=== PATIENT | male | born 1975 | race Caucasian/White ===

== ENCOUNTER 2016-04-20 20:38 | Inpatient (IN) | payer OTHER ==
[~2016-04-20] VITALS: Ht 160 cm; Wt 89.5 kg
[~2016-04-20 20:38] MED LIST: ABILIFY DISCMEL10 MG PO; ADVAIR DISKU 11 UNIT INH; ALBUTEROL 3 ML3 ML INH; ALBUTEROL0.09 MG/A2 INH; ATROVENT 0.02%2.5 ML INH; AUGMENTIN 875875 MG PO; BUPROPION HCL150 MG PO; CATAPRES 0.1MG0.1 MG PO; CATAPRES0.1 MG PO; CLONIDINE0.1 MG PO; LATUDA40 MG; LITHIUM CARBON300 M3 PO; LYRICA100 MG PO; LYRICA75 MG PO; METHYLPHENIDATE10 M2 PO; PREDNISONE 20MG20 MG PO; PREDNISONE10 MG PO; PROAIR HFA0.09 MG/Ac INH; PROBIOTIC & ACI1 CAP PO; PROVENTIL0.09 MG/Ac INH; SUBOXONE 8 MG-21 FIL SL; SYMBICORT 160/41 PUF INH; VENTOLIN H0.09 MG/Ac INH; WELLBUTRIN XL300 MG PO
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
--- NOTE | 2016-04-20 20:56 | NUR ---
TO ROOM 13. SECURITY NOTIFIED
--- NOTE | 2016-04-20 21:33 | NUR ---
BLOOD WORK DRAWN AND SENT TO LAB BY TORITO ORTIZ
[2016-04-20 21:38] LABS: ABSOLUTE BASOPHIL COUNT 0 /CUMM (0.0-0.2); ABSOLUTE EOSINOPHIL COUNT 0.4 /CUMM (0.0-0.7); ABSOLUTE GRANULOCYTE CT 1.9 /CUMM (1.4-6.5); ABSOLUTE LYMPH COUNT 2.8 /CUMM (1.2-3.4); ABSOLUTE MONOCYTE COUNT 0.5 /CUMM (0.10-0.60); BASOPHIL % 0.6 % (0.0-2.0); EOSINOPHIL % 7.6 % (0-5); GRANULOCYTE % 33.6 % (42.2-75.2); HEMATOCRIT 40.1 % (42-52); MEAN CORPUSCULAR HGB 30.4 PG (27.0-31.0); MEAN CORPUSCULAR HGB CONC 33.3 G/DL (33.0-37.0); MEAN CORPUSCULAR VOLUME 91.5 FL (80.0-94.0); MEAN PLATELET VOLUME 7.1 FL (7.4-10.4); PLATELET COUNT 268 /CUMM (130-400); RBC DISTRIBUTION WIDTH 13.4 % (11.5-14.5); RED BLOOD CELL CT 4.39 /CUMM (4.70-6.10); WHITE BLOOD CELL COUNT 5.7 /CUMM (4.8-10.8)
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
--- NOTE | 2016-04-20 22:56 | NUR ---
ASSUMED CARE OF PT PER CELENA Bishop
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
--- NOTE | 2016-04-20 23:05 | NUR ---
REPORT CALLED TO CHANTAL DALLAS
[2016-04-20] MEDS ORDERED: RITALIN10 MG PO (23:12)
[2016-04-20] MEDS ORDERED: SUBOXONE 8 MG-1 EACH SL (23:12)
[2016-04-20] MEDS ORDERED: GEODON20 M1 PO (23:13)
[2016-04-20] MEDS ORDERED: TEGRETOL200 M1 PO (23:13)
[2016-04-20] MEDS ORDERED: SYMBICORT 16010.2 GM INH (23:15)
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
[2016-04-21 00:18] VITALS: BP 142/73
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
[2016-04-21] MEDS ORDERED: MINIPRESS2 M1 PO (04:54)
[2016-04-21] MEDS ORDERED: PROPRANOLOL HCL10 M1 PO (04:57)
[2016-04-21] MEDS ORDERED: GEODON80 MG PO (04:59)
--- NOTE | 2016-04-21 07:04 | NUR ---
PT ARRIVED AT 0010. PT ASLEEP AFTER ADMIT AT 0130. PT STATES HE ALSO TAKES RITALIN 10 TID, LYRICA 150 BID, SYMBICORT BID, AND MINIPRESS. PT CALLED HIS EMPLOY AT 0500 TO SAY HE WOULD NOT BE WORKING TODAY.
[2016-04-21 08:04] VITALS: BP 120/69
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
[2016-04-21 12:16] VITALS: BP 117/61
--- NOTE | 2016-04-21 12:38 | NUR ---
PT A/OX3. PT HAS FLAT AFFECT. PT IS COMPLYING WITH MEDICATIONS. PT TOOK A SHOWER. PT IS NOT INTERACTING WITH [facility]. WILL CONTINUE TO MONITOR.
--- NOTE | 2016-04-21 15:49 | Cons- Endocrinology ---
General Information and HPI Consulting Request Date of Consult: 04/21/16 Requested By: Apolinar Reason for Consult: abnormal TFT Source of Information: patient Exam Limitations: no limitations History of Present Illness: 41 y/o male , hx of depression and asthma, who was diagnosed with hypothyroidism one year ago and has been on Levothyroxine 25 mcg daily (as per pharmacy, patient has been complaince with medication and he just picked up refill on 2016), was admitted for major depression disorder and suicidal ideation. Blood work showed TSH 5.06. In 2016, his anti TPO was < 28 and anti Tg 20. Allergies/Medications Allergies: Coded Allergies: NO KNOWN ALLERGIES (07/21/13) Home Med List: Budesonide/Formoterol Fumarate (Symbicort 160-4.5 Mcg Inhaler) (Unknown Strength ) HFA.AER.AD (Unknown Dose) INH BID PER PT (Reported) Buprenorphine HCl/Naloxone HCl (Suboxone 8 MG-2 MG Sl Film) 8 MG-2 MG FILM 1 STR SL BID PER PT (Reported) Carbamazepine (Tegretol) (Unknown Strength) TABLET 200 TAB PO BID PER PT ( Reported) Review of Systems Review of Systems Constitutional: Reports: unexplained weight loss (approximately 30 pounds). EENTM: Reports: no symptoms. Cardiovascular: Reports: no symptoms. Respiratory: Reports: no symptoms. GI: Denies: abdominal pain. Musculoskeletal: Reports: no symptoms. Hematologic/Endocrine: Reports: see HPI. 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 Psychosocial History Who Do You Live With? brother Services at Home: None Primary Language: Danish Living Will? no Functional Ability ADLs Independent: dressing, eating, toileting, bathing. Ambulation: independent IADLs Independent: shopping, housework, finances, food prep, telephone, transportation , medication admin. Exam & Diagnostic Data Last 24 Hrs of Vital Signs/I&O Vital Signs Date Time Temp Pulse Resp B/P Pulse O2 O2 Flow FiO2 Ox Delivery Rate 04/21 1216 55 117/61 04/21 0804 97.5 51 120/69 04/21 0018 96.4 58 142/73 04/20 2052 98.3 72 22 124/78 97 Intake & Output 04/21 1600 04/21 0800 04/21 0000 Intake Total Output Total Balance Patient 197 lb 210 lb Weight Physical Exam General Appearance: flat affect Neck: normal inspection Respiratory: lungs clear Cardiovascular: regular rate/rhythm Gastrointestinal: soft, non-tender Extremities: no edema Labs/Aaron Results: Laboratory Tests 04/20 2120 Chemistry Sodium (137 - 145 mmol/L) 135 L Potassium (3.5 - 5.1 mmol/L) 4.3 Chloride (98 - 107 mmol/L) 99 Carbon Dioxide (22 - 30 mmol/L) 25 Anion Gap (5 - 16) 11 BUN (9 - 20 mg/dL) 14 Creatinine (0.7 - 1.2 mg/dL) 0.8 Estimated GFR (>60 ml/min) > 60 BUN/Creatinine Ratio (7 - 25 %) 17.5 Glucose (65 - 99 mg/dL) 112 H Calcium (8.4 - 10.2 mg/dL) 9.3 Total Bilirubin (0.2 - 1.3 mg/dL) 0.5 AST (17 - 59 U/L) 26 ALT (21 - 72 U/L) 35 Alkaline Phosphatase (< 127 U/L) 87 Total Protein (6.3 - 8.2 g/dL) 7.0 Albumin (3.5 - 5.0 g/dL) 4.0 Globulin (1.9 - 4.2 gm/dL) 3.0 Albumin/Globulin Ratio (1.1 - 2.2 %) 1.3 TSH (0.270 - 4.200 uIU/mL) 5.060 H Hematology CBC w Diff NO MAN DIFF REQ WBC (4.8 - 10.8 /CUMM) 5.7 RBC (4.70 - 6.10 /CUMM) 4.39 L Hgb (14.0 - 18.0 G/DL) 13.4 L Hct (42 - 52 %) 40.1 L MCV (80.0 - 94.0 FL) 91.5 MCH (27.0 - 31.0 PG) 30.4 RDW (11.5 - 14.5 %) 13.4 Plt Count (130 - 400 /CUMM) 268 MPV (7.4 - 10.4 FL) 7.1 L Gran % (42.2 - 75.2 %) 33.6 L Lymphocytes % (20.5 - 51.1 %) 49.4 Monocytes % (1.7 - 9.3 %) 8.8 Eosinophils % (0 - 5 %) 7.6 H Basophils % (0.0 - 2.0 %) 0.6 Absolute Granulocytes (1.4 - 6.5 /CUMM) 1.9 Absolute Lymphocytes (1.2 - 3.4 /CUMM) 2.8 Absolute Monocytes (0.10 - 0.60 /CUMM) 0.5 Absolute Eosinophils (0.0 - 0.7 /CUMM) 0.4 Absolute Basophils (0.0 - 0.2 /CUMM) 0 PUBS MCHC (33.0 - 37.0 G/DL) 33.3 Toxicology Urine Opiates Screen (>2000 NG/ML) < 100.00 Methadone Screen (>300 NG/ML) < 40 Barbiturate Screen (>200 NG/ML) < 60 Carbamazepine (4.0 - 12.0 ug/mL) 7.2 Ur Phencyclidine Scrn (>25 NG/ML) < 6.00 Amphetamines Screen (>1000 NG/ML) 115 U Benzodiazepines Scrn (>200 NG/ML) < 85 Urine Cocaine Screen (>300 NG/ML) < 50 Urine Cannabis Screen (>50 NG/ML) < 5.00 Serum Alcohol (<10 MG/DL) < 10.0 Assessment/Plan Assessment/Plan 41 y/o male , hx of depression and asthma, who was diagnosed with hypothyroidism one year ago and has been on Levothyroxine 25 mcg daily (as per pharmacy, patient has been complaince with medication and he just picked up refill on 2016), was admitted for major depression disorder and suicidal ideation. Blood work showed TSH 5.06. He has been weak for a while and has lost 30 pounds lately. 1. continue Levothyroxine 25 mcg daily for now; 2. repeat TSH, free T4, TT3 and check am cortisol tomorroow am. will follow. Consult Acknowledgment - Thank you for your consult request.
[2016-04-21 16:04] VITALS: BP 133/65
--- NOTE | 2016-04-21 16:07 | SOCIAL WORKER PROG NOTE PSYCH ---
Social Work Progress Note Progress Note Tavo has been isolative today. Presents with a depressed, flat affect, minimal eye contact. Wearing a blanket over his shoulder stating he's cold. He said he didn't get much sleep last night due to getting admitted late and having to get up early. He reports that he has been very depressed for the last couple of days. Had thoughts of suicide by driving into another vehicle. When asked what stopped him? He said "It would have been pretty stupid". He has 2 past suicide attempts by overdose on pills and putting an exhaust line in his car. These 2 events were over a year ago. He says he has been taking his meds. He is in outpatient at [facility] and sees Dr. Garcia. Tavo lives with his girlfriend Katja and her parents. He views this relationship as supportive. They have been together for 17 years. He is open to having her in for a family meeting, but early next week. He is hoping to not be here long. He is concerned about his job. 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 He thinks that attending an IOP would be difficult for him and he is not open to looking to take FMLA. He is afraid of losing his job. He is hoping to return to [facility] with Dr. Garcia. Dr. Garcia also prescribes his Suboxone. 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 There is no current drug or alcohol use. He feels that he would benefit from a change in medication at this time. Wants to get back home and back to work soon.
--- NOTE | 2016-04-21 16:07 | SOCIAL WORKER TX PLAN PSYCH ---
Treatment Plan - Please Document: - Evidence that there is ongoing collaboration between - the patient and the interdisciplinary team, - including the patient's active participation and - responsibility for engaging in the treatment regimen, - and that the treatment plan is individualized and - relevant to the patient's conditions. - Treatment plan should reflect documentation indicating - that all active therapeutic efforts are included. Strengths/Capabilities: Insight into need for treatment. Pt's girlfriend is support, they live together. Physical Limitations (Interventions): CHRONIC BACK PAIN Patient Identified Trmt Goals: "I need a med change" Discharge Plan: Intensive Outpatient Problem/Goals #1 Problem #1: depression Goal (Short Term): patient will explore medication changes with the HARDBOARD FACTORY WORKER to help stabilize depressed mood and SI Goal (Mcfp): Patient will attend groups on the unit and be able to have a future oriented and goal directed conversation. Interventions: Patient will be offered medication management with the HARDBOARD FACTORY WORKER, groups on symptom management, coping skills, relaxation group, focus group, goals group, accupuncture. Door Machine Operator will assist patient is indentifying strengths and what makes life worth living. Door Machine Operator will hold family meeting and assist with aftercare planning. DSM5/PS Stressors/Medical Prob Diagnosis' (DSM 5, Stressors, Medical): F32.9 Depressive Disorder Unspecified F43.10 PTSD Unspecified, Hx. of Opioid Use Disorder In Remission, Hx of ADHD Dx, Medical Condition Asthma Current GAF: 14-17 Treatment Team - Responsibilities of members of the treatment team include: - Medication Management- MD or HARDBOARD FACTORY WORKER - Medication Administration and Monitoring- Nurse - Group Therapy- Occupational Therapist - 1:1 Therapy,Disch Planning,family involvement-Door Machine Operator
--- NOTE | 2016-04-21 16:15 | NUR ---
PER TYLER ANNA APRN THIS RN CONTACTED DR. ARGUETA AND READ TO MD THE PT'S RECENT EKG FROM TODAY THE HR WAS 46 AND READ "SINUS BRADYCARDIA...PROBABLE POSTERIOR INFARCT". PT DENIES SOB, CHEST PAIN AND SITTING IN LOUNGE ASYMPTOMATIC AND IN NO ACUTE DISTRESS D/T THIS DR. ARGUETA JUST PREFERRED A CARDIAC CONSULT TO ERR ON THE SIDE OF CAUTION/CLEAR PT COMPLETELY. TYLER AND PT UPDATE, NO FURTHER ORDERS.
--- NOTE | 2016-04-21 17:35 | IP INCIDENTAL NOTE PSYCH ---
Incidental Note Notation: Collateral was obtained from patient's outpatient [facility] psychiatrist Dr. Jaciel Garcia. Per her report, patient has a longstanding psychiatric history significant for multiple prior inpatient psych hospitalizations, 2 prior suicide attempts (excluding current resulting in this admission); chronic suicidal ideation, PTSD, Bipolar disorder (predominantly anxious/depressed/angry, without history of katelynn/hypomania), personality disorder, OLENA, treatment resistant depression, ADHD. Had been prescribed Geodon 80mg BID, Ritalin 10mg TID (tx resistant depression/ADHD), Tegretol 200mg BID, Suboxone 8/2mg BID, Propranolol 20mg TID, Prazosin 2mg QHS. Patient had been taking medications, but of note self discontinued his lithium in 02/2016 d/t GI distress. Dr. Garcia notes that current presentation may be partially related to discontinuation of [place]. He had been doing well for some time (last inpatient hospitalization was in 2014). She noted that during her last encoutner with patient in 04/1016, patient had been perseverating over enrolling in [employer] school and focused on what kind of job he would obtain once finished (however never started school), and nervous about how he would obtain finances for school. 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 At baseline, he is very worried, guarded, shows poor eye contact, depressed/flat , projecting his thoughts, becomes easily worked up, perseverates and has unrealistic expectations of himself and the world. He has a supportive girlfriend. She believes he had been adherent to medications, minus self discontinuation of lithium this past February.
--- NOTE | 2016-04-21 18:55 | NUR ---
Dr. Ham on unit this evening for cardiac consult and no further findings or concerns, pt cleared, Renita Garcia APRN updated as well, pt stable overall.
--- NOTE | 2016-04-21 19:18 | Cons- Cardiology ---
General Information and HPI Consulting Request Date of Consult: 04/21/16 Requested By: SEVERINO CALHOUN MD Reason for Consult: Abnormal EKG History of Present Illness: The patient is a 41-year-old male with history of bipolar disorder and hypothyroidism who was admitted for suicidal ideation. He is noted to have an abnormal EKG. I am consulted for evaluation of the abnormal EKG with plans for possibly starting lithium and other psychiatric medications. The patient reports that he is feeling well from a cardiac standpoint. He has had no chest pain. No shortness of breath. No palpitations. No syncope. No lightheadedness or dizziness. No nausea or vomiting. No prior history of cardiac disease. the patient has been noncompliant with his thyroid medication has now been restarted on it. He has had recent weight loss. Allergies/Medications Allergies: Coded Allergies: NO KNOWN ALLERGIES (07/21/13) Home Med List: Budesonide/Formoterol Fumarate (Symbicort 160-4.5 Mcg Inhaler) (Unknown Strength ) HFA.AER.AD (Unknown Dose) INH BID PER PT (Reported) Buprenorphine HCl/Naloxone HCl (Suboxone 8 MG-2 MG Sl Film) 8 MG-2 MG FILM 1 STR SL BID PER PT (Reported) Carbamazepine (Tegretol) (Unknown Strength) TABLET 200 TAB PO BID PER PT ( Reported) Current Medications: Current Medications Sig/Fidelia Start time Last Medication Dose Route Stop Time Status Admin Albuterol Sulfate 2 PUF Q4 PRN 04/21 1200 AC 04/22 INH 0145 Budesonide/ 2 PUF BID 04/21 2200 CAN Formoterol Fumarate INH Buprenorphine/ 1 TAB 08,04/21 0800 AC 04/22 Naloxone SL 0803 Carbamazepine 200 MG 0800,04/21 0800 AC 04/22 PO 0759 Levothyroxine Sodium 0.025 MG DAILY AC 04/22 0700 AC 04/22 PO 0647 [place] Carbonate 450 MG AT BEDTIME 04/21 2200 AC 04/21 PO 2156 Lubiprostone 24 MCG BID 04/21 1200 AC 04/22 PO 0759 Methylphenidate HCl 10 MG 0800,1200,1600 04/22 0800 AC 04/22 PO 0802 Nicotine 7 MG 0800 04/21 1230 AC 04/22 TOP 0758 Polyethylene Glycol 17 GM DAILY 04/21 1147 AC 04/22 PO 0800 Pregabalin 150 MG 0800,04/21 1145 AC 04/22 PO 0802 Ziprasidone 80 MG 0800,1800 04/22 0800 CAN PO Ziprasidone 80 MG 0800,1800 04/21 1800 CAN PO Ziprasidone 80 MG 1800 04/21 1800 CAN PO 04/21 1801 Ziprasidone 40 MG 0800,1800 04/21 1800 AC 04/22 PO 0759 Ziprasidone 80 MG 0800,2200 04/21 1200 DC PO Review of Systems Review of Systems: No rash. No trauma. No melena. All other systems are reviewed and are noted to be negative. 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 Psychosocial History Who Do You Live With? brother Services at Home: None Primary Language: Uzbek Living Will? no Functional Ability ADLs Independent: dressing, eating, toileting, bathing. Ambulation: independent IADLs Independent: shopping, housework, finances, food prep, telephone, transportation , medication admin. Exam & Diagnostic Data Vital Signs and I&O Vital Signs Date Time Temp Pulse Resp B/P Pulse O2 O2 Flow FiO2 Ox Delivery Rate 04/22 0748 97.3 60 98/63 04/21 1941 97.6 59 102/64 04/21 1604 51 133/65 04/21 1216 55 117/61 Intake & Output 04/22 1600 04/22 0800 04/22 0000 04/21 1600 04/21 0800 04/21 0000 Intake Total Output Total Balance Patient 197 lb 210 lb Weight Physical Exam: Gen: The patient is in no acute distress HEENT: Normal nose, ears, and oropharynx. Pupils equal bilaterally. Conjunctiva normal. Neck: Supple with no JVD, no masses, and no thyromegaly Lungs: Clear to auscultation with normal respiratory effort Heart: RRR, S1, S2, no murmurs. No peripheral edema, 2+ pulses in the lower extremities bilaterally Abdomen: Soft, nontender, no masses. No hepatomegaly. No splenomegaly Extremities: No clubbing or cyanosis. Normal muscle strength in the upper and lower extremities. Skin: Normal skin turgor with no skin ulcers or lesions noted. Neuro: Cranial nerves intact. Sensation intact Psych: Alert and oriented 3 with appropriate affect Labs/Aaron Results: Laboratory Tests 04/22 04/20 04/20 0559 2130 2120 Chemistry Sodium (137 - 145 mmol/L) 139 135 L Potassium (3.5 - 5.1 mmol/L) 4.3 Chloride (98 - 107 mmol/L) 99 Carbon Dioxide (22 - 30 mmol/L) 25 Anion Gap (5 - 16) 11 BUN (9 - 20 mg/dL) 14 Creatinine (0.7 - 1.2 mg/dL) 0.8 Estimated GFR (>60 ml/min) > 60 BUN/Creatinine Ratio (7 - 25 %) 17.5 Glucose (65 - 99 mg/dL) 112 H Calcium (8.4 - 10.2 mg/dL) 9.3 Total Bilirubin (0.2 - 1.3 mg/dL) 0.5 AST (17 - 59 U/L) 26 ALT (21 - 72 U/L) 35 Alkaline Phosphatase (< 127 U/L) 87 Total Protein (6.3 - 8.2 g/dL) 7.0 Albumin (3.5 - 5.0 g/dL) 4.0 Globulin (1.9 - 4.2 gm/dL) 3.0 Albumin/Globulin Ratio (1.1 - 2.2 %) 1.3 TSH (0.270 - 4.200 uIU/mL) 1.210 5.060 H Free T4 (0.79 - 2.35 ng/dL) 0.72 L Total T3 (0.97 - 1.69 ng/mL) 1.16 Cortisol AM Sample (4.46 - 22.7 ug/dL) 9.4 Hematology CBC w Diff NO MAN DIFF REQ WBC (4.8 - 10.8 /CUMM) 5.7 RBC (4.70 - 6.10 /CUMM) 4.39 L Hgb (14.0 - 18.0 G/DL) 13.4 L Hct (42 - 52 %) 40.1 L MCV (80.0 - 94.0 FL) 91.5 MCH (27.0 - 31.0 PG) 30.4 RDW (11.5 - 14.5 %) 13.4 Plt Count (130 - 400 /CUMM) 268 MPV (7.4 - 10.4 FL) 7.1 L Gran % (42.2 - 75.2 %) 33.6 L Lymphocytes % (20.5 - 51.1 %) 49.4 Monocytes % (1.7 - 9.3 %) 8.8 Eosinophils % (0 - 5 %) 7.6 H Basophils % (0.0 - 2.0 %) 0.6 Absolute Granulocytes (1.4 - 6.5 /CUMM) 1.9 Absolute Lymphocytes (1.2 - 3.4 /CUMM) 2.8 Absolute Monocytes (0.10 - 0.60 /CUMM) 0.5 Absolute Eosinophils (0.0 - 0.7 /CUMM) 0.4 Absolute Basophils (0.0 - 0.2 /CUMM) 0 PUBS MCHC (33.0 - 37.0 G/DL) 33.3 Toxicology Urine Opiates Screen (>2000 NG/ML) < 100.00 Methadone Screen (>300 NG/ML) < 40 Barbiturate Screen (>200 NG/ML) < 60 Carbamazepine (4.0 - 12.0 ug/mL) 7.2 Ur Phencyclidine Scrn (>25 NG/ML) < 6.00 Amphetamines Screen (>1000 NG/ML) 115 U Benzodiazepines Scrn (>200 NG/ML) < 85 Urine Cocaine Screen (>300 NG/ML) < 50 Urine Cannabis Screen (>50 NG/ML) < 5.00 Serum Alcohol (<10 MG/DL) < 10.0 Diagnostic Data EKG Results EKG tracing is independently reviewed, and reveals sinus bradycardia at 46 with possible posterior infarct CXR Results chest x-ray July 07, 2013: Bibasilar atelectasis; cannot exclude small left basilar infiltrate. Decrease inleft basilar density since 07/06/13. Assessment/Plan Assessment/Plan The patient is a 41-year-old male with history of bipolar disorder hypothyroidism who is admitted for suicidal ideation. He is noted to have a mildly abnormal EKG suggestive of possible posterior infarct. He is also noted to have sinus bradycardia which is asymptomatic. Since he is completely asymptomatic from a cardiac standpoint and the EKG is only minimally abnormal I recommend no further workup at this time. A review of his vital signs shows that his heart rate has mostly been in the 50s, and do not recommend further workup for the bradycardia unless it worsens or becomes asymptomatic. Recommendations: * No further cardiac workup is indicated at this time if the patient remains asymptomatic. * The patient is clear from a cardiac standpoint for therapy with lithium and other psychiatric medications as indicated Consult Acknowledgment - Thank you for your consult request.
[2016-04-21 19:41] VITALS: BP 102/64; BP 132/75
--- NOTE | 2016-04-21 20:51 | NUR ---
PT HAS BEEN ISOLATIVE AND WITHDRAWN, REMAINING IN BED FOR MAJORITY OF EVENING. MINIMAL INTERACTION WITH PEERS AND STAFF. NO COMPLAINTS OR SI REPORTED. COOPERATIVE AND COMPLIANT WITH STAFF. PT HAS A DEPRESSED MOOD AND FLAT AFFECT.
--- NOTE | 2016-04-22 05:53 | NUR ---
PT IN BED EARLY, PT APPEARED TO SLEEP. VENTOLIN INHALER PRN AT 0130.
[2016-04-22 07:48] VITALS: BP 98/63
--- NOTE | 2016-04-22 09:44 | PN- Endocrinology ---
Assessment/Plan Assessment: 41 y/o male , hx of depression and asthma, who was diagnosed with hypothyroidism one year ago and has been on Levothyroxine 25 mcg daily (as per pharmacy, patient has been complaince with medication and he just picked up refill on 2016), was admitted for major depression disorder and suicidal ideation. Blood work showed TSH 5.06. He has been weak for a while and has lost 30 pounds lately. Repeat TSH 1.21, free T4 0.72 and TT3 1.16; am cortisol 9.4. His free T4 is borderline low. Plan: 1. continue Levothyroxine 25 mcg daily for now; 2. repeat TSH, free T4 again in 3-4 days to look for a trend. will follow. Subjective Subjective: He feels sligtly better this morning. Objective Last 24 Hrs of Vital Signs/I&O Vital Signs Date Time Temp Pulse Resp B/P Pulse O2 O2 Flow FiO2 Ox Delivery Rate 04/22 0748 97.3 60 98/63 04/21 1941 97.6 59 102/64 04/21 1604 51 133/65 04/21 1216 55 117/61 Results Pertinent Lab/Aaron Results: Laboratory Tests 04/22 0559 Chemistry Sodium (137 - 145 mmol/L) 139 TSH (0.270 - 4.200 uIU/mL) 1.210 Free T4 (0.79 - 2.35 ng/dL) 0.72 L Total T3 (0.97 - 1.69 ng/mL) 1.16 Cortisol AM Sample (4.46 - 22.7 ug/dL) 9.4
[2016-04-22 12:30] VITALS: BP 125/68
--- NOTE | 2016-04-22 13:59 | CP SOUTH PROGRESS NOTE PSYCH ---
Psych (Inpt) Progress Note Progress Note Include the following elements, when applicable: Involvement in the active treatment of the patient with behavioral observations of the patient and the patient's response to the treatment. Review of the ongoing treatment process in the context of the treatment plan. Indication of how multi-disciplinary staff members are carrying out the treatment plan. Plans for future interventions and recommendations for revision of the treatment plan. Liaison with other physicians/providers. Progress Note: [I discussed this patient's progress to date, current mental status, treatment process in the context of the treatment plan, and discharge planning with staff/ team in the daily morning inpatient team meeting. I also met with the patient myself in individual session.] S: "I'm feeling a little better today." O: Current Medications Sig/Fidelia Start time Last Medication Dose Route Stop Time Status Admin Albuterol Sulfate 2 PUF Q4 PRN 04/21 1200 AC 04/22 INH 0145 Budesonide/ 2 PUF BID 04/21 2200 CAN Formoterol Fumarate INH Buprenorphine/ 1 TAB 08,04/21 0800 AC 04/22 Naloxone SL 0803 Carbamazepine 200 MG 08,04/21 0800 AC 04/22 PO 0759 Levothyroxine Sodium 0.025 MG DAILY AC 04/22 0700 AC 04/22 PO 0647 [place] Carbonate 450 MG AT BEDTIME 04/21 2200 AC 04/21 PO 2156 Lubiprostone 24 MCG BID 04/21 1200 AC 04/22 PO 0759 Methylphenidate HCl 10 MG 0800,1200,1600 04/22 0800 AC 04/22 PO 1222 Nicotine 7 MG 0800 04/21 1230 AC 04/22 TOP 0758 Polyethylene Glycol 17 GM DAILY 04/21 1147 AC 04/22 PO 0800 Pregabalin 150 MG 08,04/21 1145 AC 04/22 PO 0802 Ziprasidone 80 MG 0800,04/22 0800 CAN PO Ziprasidone 80 MG 1800 04/21 1800 CAN PO 04/21 1801 Ziprasidone 40 MG 0800,04/21 1800 AC 04/22 PO 0759 Laboratory Tests 04/22 0559 Chemistry Sodium (137 - 145 mmol/L) 139 TSH (0.270 - 4.200 uIU/mL) 1.210 Free T4 (0.79 - 2.35 ng/dL) 0.72 L Total T3 (0.97 - 1.69 ng/mL) 1.16 Cortisol AM Sample (4.46 - 22.7 ug/dL) 9.4 Vital Signs Date Time Temp Pulse Resp B/P Pulse O2 O2 Flow FiO2 Ox Delivery Rate 04/22 1230 54 125/68 04/22 0748 97.3 60 98/63 04/21 1941 97.6 59 102/64 04/21 1604 51 133/65 A: Chart, progress notes, VS, labs and medication list were reviewed. Cardiology and endocrinology consults reviewed and appreciated. HR trending between 54- 60bpm. Patient is asymptomatic, denied SOB, dizziness, chest pain, palpitations, syncope, lightheadedness or dizziness. Sodium repleted to 139. Rpt TSH normalized. Free T4 resulted low. Dr. Thomas from endocrinology will continue to follow. Met with patient today together with Manisha Dove LCSW. Patient presented A&Ox4. Was more easily engagable in conversation. Speech was soft-spoken and monotone. Affect was mostly flat with occasional range. Eye contact was appropriate. He had no complaints. He reported some nausea yesterday afternoon which resolved. He denied further episodes. He reported stable appetite eating 2 of 3 meals daily, and reported typically not eating lunch outside of the hospital. He reported continued increase in po fluids. He reported sleeping poorly last evening. He reported experiencing NMAs, which he reported commonly occurs outside of the hospital. Reported past poor efficacy on Prazosin. He reported a past history of nocturnal enuresis. Noted this last happened approx. 2 weeks ago when last experiencing a bout of sleep paralysis. He denied episodes of enuresis and sleep paralysis on unit. He also shared that enuresis occured more frequently while on [place]. He also shared that in the past on [place] he struggled with dehydration. He was instructed that if enuresis occured while hospitalized to inform nursing staff. He was provided education on [place], inlcuding the importance of good hydration and using sunscreen while outside in the sun. Patient verbalized understanding of all education. He reported depression of 4-5/10 (10 being the worst) and anxiety of 0/10 (10 being the worst). He denied passive and active suicidal ideation, plans and intent. He denied homicidal ideation, auditory and visual hallucinations. He reported feeling fearful about initial recommendation for IOP level of care post -discharge, and is worried about losing his job and transportation to/from [facility]. Patient requesting to resumes outpatient services at . Informed patient that we would review this with [facility] treatment team further. Thought process was linear and organized. Thought content was anxious. Cognition was grossly intact. There was no evidence of paranoia or delusions. Reviewed the risk/benefit/se profiles of Melatonin with patient for insomnia. Patient verbalized understanding and was agreeable to trial. Patient reported tolerating medications well, including [place]. He denied untoward medication effects, and GI distress on [place]. He was agreeable to continue taking. P: 1. Continue monitoring patient on unit for safety, suicidal ideation, mood, and sleep. 2. Continue Eskalith CR 450mg QHS. Li level scheduled on 04/24/16 at 0600. Please check level and increase as tolerated. Target Li level (0.6-1.0). 3. Will increase Geodon back to outpatient dose of 80mg BID for mood stabilization. 4. Continue monitoring HR. 5. Start Melatonin 3mg QHS for insomnia. Consider increase as needed. 6. Patient cardiac cleared to continue psychotropic medications per Dr. Ham. 7. Dr. Thomas to continue to follow for thyroid management. 8. Dispo planning per primary team.
--- NOTE | 2016-04-22 14:25 | SOCIAL WORKER PROG NOTE PSYCH ---
Social Work Progress Note Progress Note Renita Corea APRN and I met with Tavo together today. Tavo is slowly improving. States he feels better than he did yesterday. He continues to present with a flat affect and depressed mood. He rates his depression at a 4-5 today (1-10, 10 being worst). Denies any anxiety today. Continues to have trouble with sleep and nightmares. He agreed to try and start some Melatonin today. He was embarrassed, but shared that he has some occasional urinary incontinence. The last time this happened was about 2 weeks ago. He mentioned that the incontinence was more frequent when he was on the [place]. He stated he was scared to go to sleep because he didn't want it to happen. He also shared that he had some issues with dehydration in the Summer when he was on [place] and that due to working outside he was sweating alot. These are some of his concerns around reintroducing the [place]. Renita shared that it may be dose related and he may not need to be on such a high dose. [place] level will be done on Monday. Encouraged increased hydration during the day and to stop drinking around 8pm. Tavo expressed his concerns over having to attend IOP. He is "fretting" about it, because he doesn't see how he can get there on time and doesn't want to lose his job. He strongly advocated to remain with Dr. Garcia for the Suboxone. Renita informed him that we would continue to see what the best option would be and discuss it with the team. I told Tavo that I will call his girlfriend today to schedule a family meeting. He also wants her parents to be part of it. Katja (girlfriend) can be available for a phone conference on Monday at 11am.
--- NOTE | 2016-04-22 15:01 | NUR ---
PT IS COMPLIANT AND COOPERATIVE. MOOD IS STABLE WITH A FLAT AFFECT. PT DENIES SI AT THIS TIME, NO COMPLAINTS OFFERED. PT IS PRESENT IN THE COMMUNITY AND HAS SOME INTERACTION WITH PEERS AND STAFF. PT IS ATTEDNING GROUPS. VITALS ARE STABLE, APPETITE IS GOOD.
[2016-04-22 15:38] VITALS: BP 132/78
[2016-04-22 19:55] VITALS: BP 124/76
--- NOTE | 2016-04-22 22:03 | NUR ---
PT IS CALM, COOPERATIVE WITH STAFF AND PEERS, AND COMPLIANT WITH UNIT RULES. PT IS IN PERIPHERY, SOEMTIMES INTERACTING WITH OTHERS, THOUGH MOSTLY ISOLATIVE/WITHDRAWN, STAYING TO SELF. PT WILL INTERACT THOUGH WHEN DIRECTLY ENGAGED. MOOD IS STABLE, AFFECT IS FLAT/CONSTRICTED, COMMUNICATION IS ORGANIZED AND APPEARS NORMAL IN ALL RESPECTS, AND APPETITE IS NORMAL. PT DENIES SI AT THIS TIME.
--- NOTE | 2016-04-23 03:51 | NUR ---
SLEPT WELL AWAKE ONCE TO THE BATHROOM.
[2016-04-23 07:44] VITALS: BP 114/75
[2016-04-23 12:08] VITALS: BP 123/75
--- NOTE | 2016-04-23 13:08 | NUR ---
PT VISIBLE FOR MOST OF THE DAY IN THE [place]. 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 HE INTERACTS MINIMALLY WITH HIS PEERS, UNLESS SPOKEN TO DIRECTLY. PT HAS BEEN COMPLIANT WITH THE RULES OF THE UNIT, AND DENIES THOUGHTS TO HURT HIMSELF.
[2016-04-23 15:42] VITALS: BP 124/69
--- NOTE | 2016-04-23 15:58 | CP SOUTH PROGRESS NOTE PSYCH ---
Psych (Inpt) Progress Note Progress Note Nurse Elsi gave me a verbal report on patients last 24 hours I reviewed Suze Quinonez progress note. I interviewed patient. Tavo was alert and oriented, he complained of stomach pains/cramps, denied nausea or vomiting Denied diarrhea, I offered some suggestions but he quickly changed his mind, did not want changes Impoverished speech, his affect was constricted He showed good eye contact Tavo said that he does not think hes going to use Melatonin tonight, did not want alternatives Nurse Calzada reported he had an episode of enuresis last night (Asael note indicated that this is not a new problem (?? relationship to lithium and sedating meds) Tavo denied thoughts of suicide in the past 24 hours, denied hallucinations. Not clear if patient is of borderline intellectual functioning No significant though disorder, seemed somewhat anxious (may be because he never saw me before). Slightly guarded but no specific delusions. I reviewed pharmacological options with Tavo including something for stomach pain, something for enuresis, but he was too anxious about me making any changes Therefore: Continue same medications. I will Re-evaluate patient tomorrow
--- NOTE | 2016-04-23 18:35 | NUR ---
PT VISIBLE IN THE [place] MOST OF THE EVENING. IN THE MILIEU HE PRESENTS BEING QUIET AND KEEPS TO HIMSELF BUT HAS SOME INTERACTIONS WITH HIS PEERS. HE HAS BEEN COMPLIANT WITH THE RULES OF THE UNIT. PT DENIES THOUGHTS OF HURTING HIMSELF WHEN ASKED.
[2016-04-23 19:05] VITALS: BP 121/68
--- NOTE | 2016-04-24 05:39 | NUR ---
PT HAD AN EPISODE OF URINARY INCONTINENCE AT 0330. PT SHOWERED, CHANGED BLANKETS AND SHEETS, TOOK A SHOWER.
[2016-04-24 07:51] VITALS: BP 117/66
[2016-04-24 08:57] LABS: LITHIUM 0.5 mmol/L (0.6-1.2)
[2016-04-24 12:08] VITALS: BP 127/79
--- NOTE | 2016-04-24 12:53 | NUR ---
Pt is present on the unit, for a majority of the day was completing a puzzle in the kitchen with the help of peers, calm, cooperative and compliant with medications and treatment, attended groups, mood stable with flat affect but will smile intermittently when appropriate, no issues or complaints offered or reported.
--- NOTE | 2016-04-24 14:54 | CP SOUTH PROGRESS NOTE PSYCH ---
Psych (Inpt) Progress Note Progress Note Tavo was alert, oriented, and constricted in affect. He denied stomach pains/cramps today, denied nausea, vomiting, or diarrhea. His speech continues to be impoverished, he showed good eye contact Tavo denied thoughts of suicide in the past 24 hours. He denied hallucinations. No significant though disorder, seemed slightly guarded but no specific delusions. I reviewed pharmacological options with Tavo; he said he was happy with his current medication regimen. Plan: Continue same medications.
[2016-04-24 15:35] VITALS: BP 128/77
[2016-04-24 20:09] VITALS: BP 116/74
--- NOTE | 2016-04-24 23:12 | NUR ---
PT HAS BEEN SOCIAL WITH PEERS AT POINTS. HE IS ADJUSTING "SOMEWHAT TO MEDS".
--- NOTE | 2016-04-25 06:00 | NUR ---
PT INCONTINENT AT 0530. PT SHOWERED AFTER.
[2016-04-25 07:58] VITALS: BP 120/63
--- NOTE | 2016-04-25 11:44 | CP SOUTH PROGRESS NOTE PSYCH ---
Psych (Inpt) Progress Note Progress Note Include the following elements, when applicable: Involvement in the active treatment of the patient with behavioral observations of the patient and the patient's response to the treatment. Review of the ongoing treatment process in the context of the treatment plan. Indication of how multi-disciplinary staff members are carrying out the treatment plan. Plans for future interventions and recommendations for revision of the treatment plan. Liaison with other physicians/providers. Progress Note: [I discussed this patient's progress to date, current mental status, treatment process in the context of the treatment plan, and discharge planning with staff/ team in the daily morning inpatient team meeting. I also met with the patient myself in individual session.] S: "I'm doing ok." O: Current Medications Sig/Fidelia Start time Last Medication Dose Route Stop Time Status Admin Albuterol Sulfate 2 PUF Q4 PRN 04/21 1200 AC 04/23 INH 2001 Buprenorphine/ 1 TAB 0800,04/21 0800 AC 04/25 Naloxone SL 0757 Carbamazepine 200 MG 0800,04/21 0800 AC 04/25 PO 0758 Levothyroxine Sodium 0.025 MG DAILY AC 04/22 0700 AC 04/25 PO 0717 [place] Carbonate 450 MG AT BEDTIME 04/21 2200 AC 04/24 PO 2227 Lubiprostone 24 MCG BID 04/21 1200 AC 04/25 PO 0757 Melatonin 3 MG 04/22 2200 AC 04/24 PO 2227 Methylphenidate HCl 10 MG 0800,1200,1600 04/22 0800 AC 04/25 PO 0855 Nicotine 7 MG 0800 04/21 1230 AC 04/25 TOP 0758 Polyethylene Glycol 17 GM DAILY 04/21 1147 AC 04/25 PO 0758 Pregabalin 150 MG 0800,04/21 1145 AC 04/25 PO 0757 Ziprasidone 80 MG 0800,1800 04/22 1800 AC 04/25 PO 0757 Vital Signs Date Time Temp Pulse Resp B/P Pulse O2 O2 Flow FiO2 Ox Delivery Rate 04/25 757 97.4 55 120/63 04/24 2008 97.6 59 116/74 04/24 1535 60 128/77 04/24 1208 60 127/79 Lab Carbamazepine 5.6 ug/mL 04/24/16 0750 [place] 0.5 mmol/L L 04/24/16 0750 A: Chart, progress notes, VS, labs and medication list were reviewed. See Tegretol and [place] levels above. Met with patient today, together with Manisha Dove LCSW for a phone conference with the patient's girlfriend Katja. The patient's treatment progress to date , level of safety, medication regimen, and discharge planning were reviewed and discussed. Katja expressed that the patient was very concerned over starting IOP given that IOP would conflict with his work schedule. She reported that since admission to [facility], the patient's mood has improved. She also noted that in the past his mood was improved on [place]. 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 He was very focused on transitioning from inpatient psychiatry to outpatient services at for monthly medication management. Patient was informed that this would have to be reviewed with outpatient psychiatrist Dr. Garcia and [facility] treatment team. On encounter today, patient presented A&Ox3. Speech was soft spoken. Eye contact was appropriate. He reported not sleeping well last night, due to prior enuretic episode over the weekend, and fear it would happen again. Patient reported this happened again last evening an attributed this to [place]. He denied other untoward medication effects. Reviewed medications to target enuresis, however patient declined adding additional medications. Reviewed with patient cutting down on po fluids approximately 1 hour prior to bedtime and voiding before bedtime to reduce risk of enuretic episodes. Patient verbalized understanding and was agreeable to continue [place]. Today, he denied symptoms of anxiety. He reported "some" depression, but denied passive and active suicidal ideation, plans and intent. He denied homicidal ideation. He denied further thoughts of driving his car into another vehicle. He denied auditory and visual hallucinations. Thought proces was linear. Thought content was focused on discharge planning. Cognition was grossly intact. Patient reported tolerating all medications generally well, with the exception of increased urinary frequency with [place]. Patient not agreeable to making any medication changes at present. Will continue monitoring medication effects. Call placed to outpatient psychiatrist Dr. Garcia. Per Dr. Garcia, she is agreeable to treat patient for monthly medication management under the condition that patient establishes a weekly individual therapist. P: 1. Continue current medications. 2. Continue monitoring patient on unit for safety, suicidal ideation, mood and enuresis. 3. Consult hospitalist to determine need for further medical work-up to r/o diabetes insipidus. 4. Dispo planning per primary team.
--- NOTE | 2016-04-25 11:57 | SOCIAL WORKER PROG NOTE PSYCH ---
Social Work Progress Note Progress Note Tavo's girlfriend Katja participated in a phone conference today with Tavo, myself, and Renita Corea APRN. Tavo reports that over the weekend he had some periods when he felt some depression. Feeling better today. Denies any suicidal thoughts. Patient is perseverating on not wanting to go to [facility]. He is fearful of losing his job. This was also brought up by Katja. She said that Tavo was making himself sick over it through out the weekend. Renita stated that she will be talking to Dr. Garcia about any of her concerns. Tavo really does not want to lose Dr. Garcia as a doctor. He is open to seeing a therapist in the community weekly to adjuct his services at [facility]. I told him I can help him look into that before he leaves. Tavo mentioned not sleeping well last night. He is complaining of increased urination and doesn't want to be oversedated at night with medications in case he doesn't wake up to use the bathroom. He said he will continue to take the [place] if the doctor and people around him think he did better on it. He talked about wanted to cut back on some of the medications he is prescribed. He would like to be able to make more money and have employment goals, but feels he is limited by what he can obtain while on [place]. He would eventually like to be able to switch to another insurance if possible, if it would help with his meds and appts. 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 Started calling some therapists in the area to see about Tavo receiving individual therapy weekly in conjuction with outpatient from Dr. Garcia.
[2016-04-25 12:19] VITALS: BP 127/75
--- NOTE | 2016-04-25 13:24 | NUR ---
PT IS COMPLIANT AND COOPERATIVE. MOOD IS STABLE WITH A FLAT AFFECT. PT APPEARS DEPRESSED; SPEAKING SOFTLY, SAD AFFECT. PT DENIES SI AT THIS TIME, NO COMPLAINS OFFERED. PT IS PRESENT IN THE COMMUNITY AND INERACTING WITH PEERS AND STAFF. PT IS ATTENDING GROUPS. VITALS ARE STABLE, APPETITE IS GOOD.
[2016-04-25 16:09] VITALS: BP 138/92
[2016-04-25 19:37] VITALS: BP 110/69
--- NOTE | 2016-04-25 21:15 | NUR ---
PT IS CALM, COOPERATIVE WITH STAFF AND PEERS, AND COMPLIANT WITH UNIT RULES. PT IS OFTEN IN [place], THOUGH IN PERIPHERY, SLIGHTLY ISOLATIVE AND WITHDRAWN, SEEMINGLY TENTATIVE TO TALK WITH OTHERS. MOOD IS STABLE, AFFECT IS FLAT/CONSTRICTED, COMMUNICATION IS ORGANIZED AND NORMAL IN ALL RESPECTS, AND APPETITE IS NORMAL. PT DENIES SI AT THIS TIME.
[2016-04-26 07:37] VITALS: BP 104/66
--- NOTE | 2016-04-26 11:33 | NUR ---
PT VISIBLE IN THE [place] TODAY. HIS GOAL WAS TO STAY FOCUSED, AND TALK TO CLINICAL STAFF ABOUT DISCHARGE PLANS. PT HAS BEEN PARTICIPATING IN GROUPS, AND INTERACTING WITH PEERS. PT HAS BEEN COMPLIANT WITH STAFF DIRECTION, AND DENIES THOUGHTS OF HURTING SELF WHEN ASKED.
[2016-04-26 12:36] VITALS: BP 119/68
--- NOTE | 2016-04-26 12:58 | SOCIAL WORKER PROG NOTE PSYCH ---
See Addendum Social Work Progress Note Progress Note Made pt an intake appointment for outpatient therapy at [facility] for 05/03/16 at 8am.
[2016-04-26 15:54] VITALS: BP 126/72
--- NOTE | 2016-04-26 17:02 | CP SOUTH PROGRESS NOTE PSYCH ---
Psych (Inpt) Progress Note Progress Note Include the following elements, when applicable: Involvement in the active treatment of the patient with behavioral observations of the patient and the patient's response to the treatment. Review of the ongoing treatment process in the context of the treatment plan. Indication of how multi-disciplinary staff members are carrying out the treatment plan. Plans for future interventions and recommendations for revision of the treatment plan. Liaison with other physicians/providers. Progress Note: PSYCHIATRIST NOTE, 04/26/2016: I assumed the care of patient this morning, discussed his progress to date, current mental status, treatment and discharge planning with staff team in the daily morning ITTM and met with him myself in individual session. 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 Patient has been restarted on [place] since admission but with a level of only 0.5mEq/L; there has been an issue around patient experiencing nocturnal enuresis since admission; however,a he is currently receiving his entire daily dose of Li + at HS; patient agreed to my holding dose tonight and restarting at 8am tomorrow. Serum sodium since restarting [place] was 139 and 135 at time of admission; BUN and creatinine are normal; we will continue to monitor. Patient claims to be feeling better than at time of admission but is still constricted and sullen in affect, communicates little spontaneously.
[2016-04-26 19:46] VITALS: BP 134/72
--- NOTE | 2016-04-26 20:48 | NUR ---
PT IS CALM, COOPERATIVE WITH STAFF AND PEERS, AND COMPLIANT WITH UNIT RULES. PT IS IN THE UNIT PERIPHERY, INTERACTING WITH OTHERS AT TIMES, THOUGH REMAINING SLIGHTLY ISOLATIVE AND WITHDRAWN FOR THE MOST-PART. MOOD IS STABLE, AFFECT IS SLIGHLY CONSTRICTED/FLAT, APPEARS SLIGHTLY ANXIOUS AT TIMES, COMMUNICATION IS ORGANIZED AND NORMAL IN ALL RESPECTS, AND APPETITE IS NORMAL. PT DENIES SI AT THIS TIME.
[2016-04-27 07:54] VITALS: BP 99/62
[2016-04-27 12:25] VITALS: BP 119/73
--- NOTE | 2016-04-27 14:07 | NUR ---
PT REPORTS HIS MOOD IS IMPROVING AND HE EXPECTS DISCHARGE TOMORROW. WHEN ASKED HE DENIED ANY SUICIDAL THOUGHTS OR THOUGHTS OF SELF HARM. HE IS COMPLIANT WITH HIS MED REGIME AND TREATMENT PLAN.HE IS CALM AND COOPERATIVE AT THIS TIME
--- NOTE | 2016-04-27 16:23 | SOCIAL WORKER PROG NOTE PSYCH ---
Social Work Progress Note Progress Note Ariana Nguyen Clinician at [facility] stated that if Tavo is not open to attending IOP, he can be seen by a clinican there every . Talked to Tavo, who reports that he is feeling pretty good and "ready to go". When asked what has changed? He said that the hopelessness and despair have decreased. Reports that his depression is at a 1(10 being worst) and Anxiety a 0. He is nervous though about the meds and the incontinence. He said he has been sleeping better, but he is still thinking about going to the bathroom at night which causes him some distress. Patient exhibits forward thinking at this time stating "I want a career", "I want my life back". Wants to remain out of the hospital. He is hoping to save money and go back to school. Talked about IOP. Tavo remains adamant that he can't do IOP right now, due to work. He states he doesn't like his job, but it is critical to him and his family right now that he has an income and is bringing home money. He feels "happy" working with Dr. Garcia. I told him that he will need to go for individual every . He said he will follow through and that his girlfriend will also be encouraging this.
[2016-04-27 16:52] VITALS: BP 122/71
--- NOTE | 2016-04-27 19:15 | CP SOUTH PROGRESS NOTE PSYCH ---
Psych (Inpt) Progress Note Progress Note Include the following elements, when applicable: Involvement in the active treatment of the patient with behavioral observations of the patient and the patient's response to the treatment. Review of the ongoing treatment process in the context of the treatment plan. Indication of how multi-disciplinary staff members are carrying out the treatment plan. Plans for future interventions and recommendations for revision of the treatment plan. Liaison with other physicians/providers. Progress Note: PSYCHIATRIST NOTE, 04/27/2016: I discussed this patient's progress to date, current mental status, treatment and discharge planning with staff team today in the daily morning ITTM and also met with him again myself in individual session. Unfortunately, patient experienced nocturnal enuresis again last night; I had held his [place] and restarted it this morning as a single AM dose. Patient's affect was somewhat broader and mood brighter today. He wants to get back to work and resume his outpatient appointments with Dr. Garcia but does not want to enter the [facility]; arrangement has been made for him to see Ariana Belle LCSW, in individual sessions, along with continued monitoring by Dr. Garcia. I must say that I don't see the benefit patient receives from Adderall, particularly given his diagnosis of bipolar spectrum disorder; he is a longtime polysubstance abuser and, in my opinion, he has added amphetamine to his list of addictions; it certainly has not helped him focus/concentrate or even appear more alert in my opinion.
[2016-04-27 19:28] VITALS: BP 125/78
--- NOTE | 2016-04-27 21:11 | NUR ---
PT IS VISIBLE ON UNIT, SITTING IN KITCHEN AND DOING PUZZLES. SOCIAL WITH PEERS AND STAFF. VERY PLEASANT AND COOPERATIVE. NO COMPLAINTS OR SI REPORTED. PT ASKED FOR BRIEFS/DIAPERS DUE TO INCONTINENCE AT NIGHT, REPORTS NOT KNOWING WHY IT IS HAPPENING. PT HAS A STABLE MOOD AND FLAT AFFECT.
--- NOTE | 2016-04-28 06:33 | NUR ---
PT APPEARED TO SLEEP WELL. PT HAD REQUESTED A DIAPER TO AVOID AN ACCIDENT IN THE NIGHT. PT UP EARLY AT 0530.
[2016-04-28 07:49] VITALS: BP 104/67
[2016-04-28 08:24] LABS: LITHIUM 0.3 mmol/L (0.6-1.2)
--- NOTE | 2016-04-28 11:40 | SOCIAL WORKER PROG NOTE PSYCH ---
Social Work Progress Note Progress Note Met with Tavo who reports he is well and ready to leave today. Denies any SI. Stated he would talk to his girlfriend or call Dr. Garcia if he had any suicidal thoughts. He denied any urinary incontinence last night, but stated he got up 6 -7 times to use the bathroom, so he didn't get a good night's sleep. He is aware of his follow up appt.'s in outpatient. He is planning to return to work on Monday. We talked about managing work related stress. He is working 12 hour days and often gets burnt out. Discussed trying to manage his thoughts about the process. He often can't leave at 4pm when he would like, because they schedule more transportation for him. He views the job as temporary and the end goal is to return to school and find another job that would be less stressful for him. He said "there is a light at the end of the tunnel". Planning for his girlfriend's Mother to pick him up around noon today. Provided him a letter for work.
[2016-04-28] MEDS ORDERED: TEGRETOL200 M1 PO (11:46)
[2016-04-28] MEDS ORDERED: ZIPRASIDONE HCL80 M1 PO (11:47)
[2016-04-28] MEDS ORDERED: LITHIUM CARBON450 M1 PO (11:51)
[2016-04-28] MEDS ORDERED: MELATONIN3 M4 PO (11:52)
[2016-04-28] MEDS ORDERED: SYNTHROID25 MCG PO (11:52)
[2016-04-28] MEDS ORDERED: LYRICA150 M1 PO (12:02)
[2016-04-28] MEDS ORDERED: RITALIN10 MG PO (12:03)
[2016-04-28] MEDS ORDERED: AMITIZA24 MC1 PO ×2 (12:04→12:22)
[2016-04-28] MEDS ORDERED: MIRALAX17 G1 PO (12:05)
[2016-04-28] MEDS ORDERED: NICOTINE PATCH1 EAC1 TOP (12:21)
[2016-04-28] MEDS ORDERED: MIRALAX119 GM PO (12:22)
--- NOTE | 2016-04-28 12:39 | NUR ---
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 PER DR. PEDRAZA PT TO NOT CONTINUE ON RITALIN AND LYRICA AND CAN (CONTINUE/FOLLOW-UP) RE: THESE MEDICATIONS PER DR. RUBALCAVA, PT AWARE AND ALL NECESSARY PAPERWORK I.E., W-10, INFO PACKETS, PT RESOURCE GUIDE REVIEWED AND PT VERBALIZED UNDERSTANDING -> PLEASE SEE PAPER W-10 COPY FOR COMPLETE ACCURACY RE: MEDICATION/DISCHARGE DISPO. INFORMATION PACKET RE: DEPRESSION AND SI GIVEN AND PT REOSURCE GUIDE REVIEWED WITH PERTINENT NUMBERS [facility], SUICIDE HOTLINE, IOP. MOOD IS STABLE WITH FULL RANGE AFFECT, REPORTS + UNDERSTANDING R/T FOLLOW-UP AND MEDICATIONS, WHEN ASKED DIRECTLY DENIES SI/HI/HALLUCINATIONS, NO ISSUES OR COMPLAINTS REPORTED OR OBSERVED, REPORTS OVERALL IMPROVEMENT IN MOOD, SLEEP AND APPETITE.
--- NOTE | 2016-04-28 12:56 | CP SOUTH PROGRESS NOTE PSYCH ---
Psych (Inpt) Progress Note Progress Note Include the following elements, when applicable: Involvement in the active treatment of the patient with behavioral observations of the patient and the patient's response to the treatment. Review of the ongoing treatment process in the context of the treatment plan. Indication of how multi-disciplinary staff members are carrying out the treatment plan. Plans for future interventions and recommendations for revision of the treatment plan. Liaison with other physicians/providers. Progress Note: PSYCHIATRIST NOTE (DISCHARGE), 04/28/2016: I discussed this patient's progress to date, current mental status, treatment and discharge plans with staff team today in the daily morning ITTM and also met with him again myself in individual session prior to discharging him to resume outpatient appointments with Pippa Garcia M.D., and begin weekly visits with Ariana Belle LCSW. Though patient experienced frequent awakenings and had the urge to urinate several times last night he denied any nocturnal enuresis. He will continue on low dose extended release [place] in the morning only; since carbamazepine level was relatively marginal this admission consideration might be given to increasing Tegretol dose by 100-200mg/day, particularly if [place] dosing is limited due to physical/physiologic issues. Patient was calm and euthymic today, expressed his feeling that he could safely discharge to outpatient f/u, showing no current evidence of suicidal or homicidal ideation, plans, intent or impulses and well aware of his safety plan should he ever in future come to believe himself at risk for self-harm. Patient has supplies of methylphenidate and pregabalin from his prescriber and knows well my own opinion on his use of these, especially the Ritalin. I have called into [facility] in [place], [place] on day of discharge: Lithobid, 450mg: i daily in AM (450mg/day); #14 with no refill (mood stabilization) Tegretol, 200mg: i 2x/day (400mg daily); #28 with no refill (mood stabilization) Geodon, 80mg: i 2x/day, with meals (160mg daily); #28 with no refill (clarify thinking) patient was also offered the following OTC medications: nicotine patch, 7mg (but refused it though he did take appointment card for next [facility] on 05/11/2016 at 4pm (with Ms. Belle) melatonin, 3mg HS PRN DFA
--- NOTE | 2016-04-28 12:58 | DISCHARGE SUMMARY REPORT-PSYCH ---
Visit Information Visit Dates/Diagnosis' Admission Date: 04/20/16 Discharge Date: 04/28/16 Reason for Admission: "I tried driving my car into a bus...I'd rather be home." Psy Discharge Primary Diag: Depression, Unspecified Bipolar with suicidal ideation Psy Discharge Secondary Diag: Opioid Dependence (on Suboxone maintenance), Hypothyroidism (time of taking Synthroid was adjusted in hospital Hospital Course Significant Lab Findings: glucose = 112; sodium = 135; TSH = 5.060; serum alcohol level = less than 10.0; WBC = 5.7, RBC = 4.39, hgb = 13.4, hct = 40.1; grans 33.6%, eos 7.6%; urine for drugs of abuse--positive for buprenorphine (patient is treated with Suboxone), but otherwise negative (for complete details of all normal range laboratory data from this admission, see the electronic medical record) Course Complications: none Consultations: patient was seen for an admission medical H&P and followed medically throughout this admission by Brian Basilio M.D.; he was also seen in endocrinology consultation by Dr. Thomas and cardiologic consultation by Dr. Ham (for details see complete consult notes in the electronic medical record) Allergies: Coded Allergies: NO KNOWN ALLERGIES (07/21/13) Hospital Course/TX Response: I assumed the care of this patient on 04/26/2016. He had agreed to restart Rye but was experiencing some nocturnal enuresis and dose of Rye was limited and moved from HS to AM; though Li+ concentration did not rise above 0.5mEq/L patient's affect gradually brightened and mood lifted but not completely to euthymia, some dysphoria persisting but patient denied any suicidal or homicidal ideation, plans, intent or impulses prior to discharge and was well aware of his safety plan should he ever in future come to feel himself at risk for self-injury or of harming others. TSH was borderline elevated and free T4 marginal, indicating likelihood that patient had self- discontinued Synthroid ASSEMBLY LINE UPHOLSTERER; he was seen by developmental services worker, Dr. Thomas, and stabilized back on a low dose of 25mcg/day. Patient was also seen by lemon picker, Dr. Ham who cleared patient's EKG for restarting Rye prophylaxis. Discharge HBIPS - Tobacco Use Treatment Offered Post DC Medications Offered: Refused Tob Medication Tx (offered 7mg patch-- refused use) Post DC Tobacco Treatment Plan: [facility] Appt Date: 05/11/16 (cessation grp 4pm--Ms. Belle) - EtOH/Drug Use D/O Treatment Offered Post DC Medications Offered: NA-No EtOH/Drug Use D/O Post DC EtOH/SubAbuse TX Plan: NA-No EtOH/Drug Use D/O Metabolic Screening - Screen if on a Neuroleptic Medication - Metabolic screening should include: - Blood Pressure, BMI, Glucose or Hgb A1c, & a - Lipid profile from within the past 365 days. Metabolic Screening ([X]) Not Applicable, patient not on a neuroleptic. OR () Patient on a neuroleptic(s) . Enter below results for Glucose or Hemoglobin A1C, and lipid panel if obtained during the last 365 days. BMI: Blood Pressure: 104/67 Laboratory Results (If applicable): glucose = 112 (04/20/2016) cholesterol = 188 triglycerides = 62 HDL = 73 LDL = 103 (all drawn on 10/28/2015) Discharge Instructions General Discharge Information Discharge Medications: Discharge Medications (dose, route, frequency, indications): Lithobid, 450mg: i daily in AM (450mg/day); #14 with no refill (mood stabilization) Tegretol, 200mg: i 2x/day (400mg daily); #28 with no refill (mood stabilization) Geodon, 80mg: i 2x/day, with meals (160mg daily); #28 with no refill (clarify thinking) patient was also offered the following OTC medications: nicotine patch, 7mg (but refused it though he did take appointment card for next [facility] on 05/11/2016 at 4pm (with Ms. Belle) melatonin, 3mg HS PRN DFA Multiple Neuroleptics: ([X]) Not Applicable OR Document below three failed attempts at monotherapy, or a plan to taper to monotherapy, or augmentation of Clozapine. () Patient's Diet: reg. Patient's Activity: without restrictions DC Disposition: back to [place] with girlfriend Recommendations: I would advise continued close monitoring of symptoms related to possible Rye intolerance and either limit dose of or taper away if these persist; particularly if Rye therapy is limited would recommend consideration of titrating up slowly on current dose of Tegretol as current carbamazepine concentration is marginal. Referred To: Patient was referred back to individual appointments with Eleanor Garcia M.D., and weekly visits with Ariana Belle LCSW, in OPS; he was also urged to attend [facility], beginning on 05/11/2016 at 4pm and to regular attend local AA/NA meetings and communicate frequenly with a sponsor. Patient will also follow up with developmental services worker, Dr. Thomas, in her office for further evaluation and monitoring of hypothyroidism. Copies To: GINI LEHMAN,ELEANOR; YOSHI FIGUEROA,CONSTANZA
== END 2016-04-28 12:50 | DRG 753 ==
LOC: ERH 20:38 → CP SOUTH 23:16 → ERHI 23:16 → CP SOUTH 04-21 00:14
PROVIDERS: Physician Assistant Medical; Registered Nurse Psychiatric/Mental Health; ADMIT Psychiatry & Neurology Addiction Medicine
DX: F31.9 Bipolar disorder, unspecified (principal); E03.9 Hypothyroidism, unspecified
CPT/HCPCS: 36415; 80307; 93005; 93010; G0480; J3490

== ENCOUNTER 2016-05-19 12:27 | Emergency (ER) | payer OTHER ==
[~2016-05-19] VITALS: Ht 162.6 cm; Wt 74.8 kg
[~2016-05-19 12:27] MED LIST changes: +AMITIZA24 MC1 PO; +GEODON20 M1 PO; +GEODON80 MG PO; +LITHIUM CARBON450 M1 PO; +LYRICA150 M1 PO; +MELATONIN3 M4 PO; +MINIPRESS2 M1 PO; +MIRALAX119 GM PO; +MIRALAX17 G1 PO; +NICOTINE PATCH1 EAC1 TOP; +PROPRANOLOL HCL10 M1 PO; +RITALIN10 MG PO; +SUBOXONE 8 MG-1 EACH SL; +SYMBICORT 16010.2 GM INH; +SYNTHROID25 MCG PO; +TEGRETOL200 M1 PO; +ZIPRASIDONE HCL80 M1 PO
--- NOTE | 2016-05-19 12:42 | ED PSYCHIATRIC COMPLAINT ---
History of Present Illness General Chief Complaint: Psychiatric Related Complaint Stated Complaint: BIBA FOR DEPRESSION ?SI Source: patient Exam Limitations: no limitations Vital Signs & Intake/Output Vital Signs & Intake/Output Vital Signs Date Time Temp Pulse Resp B/P Pulse O2 O2 Flow FiO2 Ox Delivery Rate 05/20 0838 97.5 63 18 109/57 97 Room Air 05/20 0611 96.9 56 18 90/50 98 Room Air 05/20 0317 96.9 54 18 110/62 97 Room Air 05/20 0001 97.1 54 18 115/64 99 Room Air 05/19 1843 96.5 50 18 127/81 05/19 1457 96.5 50 18 127/81 100 Room Air 05/19 1228 96.3 58 18 130/79 100 Room Air ED Intake and Output 05/20 0000 05/19 1200 Intake Total Output Total Balance Patient 165 lb Weight Allergies Coded Allergies: NO KNOWN ALLERGIES (07/21/13) Triage Nurses Notes Reviewed? yes Onset: Abrupt Duration: day(s): Timing: recent history HPI: 05/19/16 1:30 PM 41-year-old male presents to the emergency department from outpatient psychiatry for depression with suicidal ideation. The patient states that he has a history of depression and anxiety patient having thoughts about hurting himself, he currently denies any plan. The onset of the symptoms were abrupt, the duration has been for days, the severity is significant; as his symptoms required him to come to the emergency department for care He has past medical history of asthma but denies other significant medical problems. (RENUKA INMAN DO) Reconcile Medications Budesonide/Formoterol Fumarate (Symbicort 160-4.5 Mcg Inhaler) (Unknown Strength ) HFA.AER.AD (Unknown Dose) INH BID PER PT (Reported) Buprenorphine HCl/Naloxone HCl (Suboxone 8 MG-2 MG Sl Film) 8 MG-2 MG FILM 1 STR SL BID PER PT (Reported) Carbamazepine (Tegretol) 200 MG TABLET 200 MG PO BID MOOD STABILIZATION Levothyroxine Sodium 50 MCG TABLET 1 TAB PO DAILY THYROID (Reported) [place]. [place] Carbonate 300 MG TABLET 1 TAB PO BID BIPOLAR [place] Carbonate (St. Stephen Carbonate ER) 450 MG TABLET.ER 450 MG PO 0800 MOOD STABILIZATION Lubiprostone (Amitiza) 24 MCG CAPSULE 24 MCG PO BID CONSTIPATION Melatonin 3 MG TABLET 3 MG PO 2200 SLEEP Methylphenidate Hydrochloride (Ritalin) 10 MG TABLET 1 TAB PO TID ADD ( Reported) Nicotine (Nicotine Patch) 7 MG/24 HOUR PATCH.TD24 7 MG TOP 0800 smoking cessation Polyethylene Glycol 3350 (Miralax) 17 GRAM/DOSE POWDER 17 GM PO DAILY CONSTIPATION Ziprasidone HCl 80 MG CAPSULE 80 MG PO 0800,1800 mood and thinking (MARITZA LEHMAN,RENUKA Keith) Past History Travel History Traveled to [place] past 21 day No Medical History Any Pertinent Medical History? see below for history Neurological: peripheral neuropathy EENT: allergies, sinusitis Cardiovascular: NONE Respiratory: asthma Gastrointestinal: CONSTIPATION Hepatic: NONE Renal: NONE Musculoskeletal: NONE Psychiatric: depression, opioid dependence, SUBOXONE SUICIDE ATTEMPTS Endocrine: NONE Blood Disorders: NONE Cancer(s): NONE COIN BOX INSPECTOR/Reproductive: NONE Other Medical Hx: OPIATE DEPENDENCY and peripheral neuropathy History of MRSA: No History of VRE: No History of CDIFF: No Influenza Vaccine: 11/15/09 Surgical History Surgical History: tonsillectomy, appendectomy Psychosocial History Who do you live with Other (see notes) Services at Home None What is your primary language Arabic Family History Family History, If Any: BROTHER (asthma). Hx Contributory? No (RENUKA INMAN DO) Review of Systems Review of Systems Constitutional: Denies: no symptoms. EENTM: Reports: no symptoms. Respiratory: Reports: no symptoms. Cardiovascular: Reports: no symptoms. GI: Reports: no symptoms. Genitourinary: Reports: no symptoms. Musculoskeletal: Reports: no symptoms. Skin: Reports: no symptoms. Neurological/Psychological: Reports: depressed. Hematologic/Endocrine: Reports: no symptoms. Immunologic/Allergic: Reports: no symptoms. (RENUKA INMAN DO) Physical Exam Physical Exam General Appearance: well developed/nourished, alert, awake, anxious, mild distress Head: atraumatic, normal appearance Eyes: Bilateral: normal appearance, PERRL, EOMI. Ears, Nose, Throat: normal pharynx, normal ENT inspection Neck: normal inspection, supple Respiratory: normal breath sounds, chest non-tender, no respiratory distress Cardiovascular: regular rate/rhythm Gastrointestinal: non-tender Extremities: normal range of motion Neurological/Psychiatric: no motor/sensory deficits, awake, alert, depressed affect Appearance/Memory/Insight: appropriate appearance, appropriate insight Behavoir/Eye Contact/Speech: cooperative Thoughts/Hallucinations: normal thought pattern, no apparent hallucination Skin: intact, normal color, warm/dry SAD PERSONS SAD PERSONS Response Value Male Sex? yes 1 Depression/Hopelessness? yes 2 Previous Attempts/Psych Care yes 1 Excessive Ethanol/Drug Use? yes 1 Single//? yes 1 Social Support? has no support 1 Total 7 SAD PERSONS Done? yes (RENUKA INMAN DO) Progress Differential Diagnosis: DEPRESSION, SUICIDAL IDEATION Plan of Care: Orders Procedure Date/time Status Continuous Observation Monitor 05/21 0700 Active Continuous Observation Monitor 05/21 0300 Active Continuous Observation Monitor 05/20 2300 Active Continuous Observation Monitor 05/20 1900 Active Add-on Test (ER Only) 05/19 1854 Active LITHIUM 05/19 1342 Complete Continuous Observation Monitor 05/19 1331 Active ETHANOL 05/19 1331 Complete COMPREHENSIVE METABOLIC PANEL 05/19 1331 Complete CBC WITHOUT DIFFERENTIAL 05/19 1331 Complete ED CRISIS PSYCH CONSULT 05/19 1331 Active URINE DRUG SCREEN FOR ER ONLY 05/19 1246 Complete Laboratory Tests 05/19/16 1342: Anion Gap 10, Estimated GFR > 60, BUN/Creatinine Ratio 14.4, Glucose 84, Calcium 9.8, Total Bilirubin 0.4, AST 22, ALT 39, Alkaline Phosphatase 78, Total Protein 7.3, Albumin 4.3, Globulin 3.0, Albumin/Globulin Ratio 1.4, CBC w Diff NO MAN DIFF REQ, RBC 4.60 L, MCV 91.5, MCH 30.5, RDW 13.1, MPV 7.3 L, Gran % 44.0, Lymphocytes % 42.7, Monocytes % 7.1, Eosinophils % 5.6 H, Basophils % 0.6, Absolute Granulocytes 2.5, Absolute Lymphocytes 2.5, Absolute Monocytes 0.4, Absolute Eosinophils 0.3, Absolute Basophils 0, PUBS MCHC 33.4, [place] 0.4 L, Serum Alcohol < 10.0 05/19/16 1247: Urine Opiates Screen < 100.00, Methadone Screen < 40, Barbiturate Screen < 60, Ur Phencyclidine Scrn < 6.00, Amphetamines Screen < 100, U Benzodiazepines Scrn < 85, Urine Cocaine Screen < 50, Urine Cannabis Screen < 5.00 Initial ED EKG: none (RENUKA INMAN DO) Hand-Off Endorsed To: RENUKA SALAS MD Endorsed Time: 0700 Pending: consult (re-eval) (HARPER LEHMAN,ALLA) Comments: 05/20/2016 9:00:53 AM patient signed out to me by Dr. Layton at shift changeover operator. Crisis evaluation complete, patient continued stable for outpatient management. (MARITZA LEHMAN,RENUKA Keith) Departure Departure Condition: Stable Referrals: MELISSA MCELROY-THEA,EMIR Carrillo (PCP/Family) Departure Forms: Customer Survey General Discharge Information Comments 05/19/16 7 PM The patient was seen and evaluated by crisis. He will be held in the emergency department overnight for reevaluation. The patient was signed out to Dr. Moore at 7 PM. (RENUKA INMAN DO) Departure Disposition: HOME OR SELF CARE Clinical Impression Primary Impression: Depression Qualifiers: Depression Type: unspecified Qualified Code: F32.9 - Major depressive disorder, single episode, unspecified Additional Instructions: WE ARE ADJUSTING YOUR LITHIUM DOSE. PLEASE FOLLOW UP WITH THE APPT DISCUSSED WITH CRISIS. HAVE YOUR LITHIUM LEVEL RECHECKED AT THAT TIME. RETURN IF ANY CONCERNS OR WORSENING. Prescriptions: Current Visit Scripts [facility] Carbonate 1 TAB PO BID #30 TAB (MARITZA LEHMAN,RENUKA Keith)
[2016-05-19 13:49] LABS: ABSOLUTE BASOPHIL COUNT 0 /CUMM (0.0-0.2); ABSOLUTE EOSINOPHIL COUNT 0.3 /CUMM (0.0-0.7); ABSOLUTE GRANULOCYTE CT 2.5 /CUMM (1.4-6.5); ABSOLUTE LYMPH COUNT 2.5 /CUMM (1.2-3.4); ABSOLUTE MONOCYTE COUNT 0.4 /CUMM (0.10-0.60); BASOPHIL % 0.6 % (0.0-2.0); EOSINOPHIL % 5.6 % (0-5); MEAN CORPUSCULAR HGB 30.5 PG (27.0-31.0); MEAN CORPUSCULAR HGB CONC 33.4 G/DL (33.0-37.0); MEAN CORPUSCULAR VOLUME 91.5 FL (80.0-94.0); MEAN PLATELET VOLUME 7.3 FL (7.4-10.4); PLATELET COUNT 316 /CUMM (130-400); RBC DISTRIBUTION WIDTH 13.1 % (11.5-14.5); WHITE BLOOD CELL COUNT 5.8 /CUMM (4.8-10.8)
[2016-05-19] MEDS ORDERED: LEVOTHYROXINE50 MCG PO (16:38)
[2016-05-19] MEDS ORDERED: RITALIN10 MG PO (16:39)
[2016-05-19 19:20] LABS: LITHIUM 0.4 mmol/L (0.6-1.2)
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
[2016-05-20 08:38] VITALS: BP 109/57
[2016-05-20] MEDS ORDERED: LITHIUM CARBON300 M5 PO (08:49)
== END 2016-05-20 09:16 ==
LOC: ERH 12:27
PROVIDERS: Emergency Medicine
DX: F32.9 Major depressive disorder, single episode, unspecified (principal); F11.20 Opioid dependence, uncomplicated
CPT/HCPCS: 80307; G0463; G0480